=== PATIENT | female | born 1970 | race African-American/Black ===

== ENCOUNTER 2019-12-24 23:35 | Inpatient (IN) ==
[2019-12-25] MEDS ORDERED: guaiFENesin/DM ER 600-30 MG TABLET PO PRN (03:08)
[2019-12-25] MEDS ORDERED: diphenhydrAMINE CAP 25 MG CAPSULE PO PRN (03:08)
[2019-12-25] MEDS ORDERED: ACETAMINOPHEN 325 MG TABLET PO PRN (03:08)
[2019-12-25] MEDS ORDERED: BISACODYL 5 MG TABLET PO PRN (03:08)
[2019-12-25] MEDS ORDERED: NICOTINE 21 MG/24 HR PATCH TRANSDERM PRN (03:08)
[2019-12-25] MEDS ORDERED: hydrALAZINE 20 MG/1 ML VIAL IV PRN (03:42)
[2019-12-25] MEDS ORDERED: INFLUENZA VIRUS VACCINE 0.5 ML SYRINGE IM ONE (03:56)
[2019-12-25] MEDS: SODIUM CHLORIDE 0.9% 1,000 ML IV SCH ×2 (03:58→17:23)
[2019-12-25] MEDS: MORPHINE 4 MG/1 ML VIAL IV PRN ×5 (04:12→23:31)
[2019-12-25 05:23] LABS: Basophils % 0.5 % (0.0-0.8); Hematocrit 42.1 VOL% (35.7-47.0); Hemoglobin 13.8 GM/DL (12.0-16.0); Immature Granulocytes % 1.4 %; Immature Granulocytes Absolute 0.03 #; Lymphocytes # 0.6 10*3/uL (1.4-4.0); Lymphocytes % 25.9 % (21.3-54.2); Mean Corpuscular HGB Conc 32.8 GM/DL (32-36); Mean Corpuscular Volume 84.2 FL (87-102); Mean Platelet Volume 9.5 FL (9.6-12.0); Monocytes % 6.4 % (1.7-12.7); Neutrophils % 65.8 % (38.7-73.9); Platelet Count 198 T/CUMM (130-400); Red Cell Distribution Width 13.2 % (9.3-17.3); White Blood Count 2.2 T/CUMM (4-12)
[2019-12-25 05:52] LABS: Risk Ratio 6.45; VLDL CHOLESTEROL 23.4 MG/DL
[2019-12-25 05:52] LABS: Troponin I < 0.015 NG/ML (0.00-0.045)
[2019-12-25 05:54] LABS: Albumin 2.7 G/DL (3.4-5.0); Bilirubin,Total 0.5 MG/DL (0.2-1.0); Calcium 7.8 MG/DL (8.5-10.1); Osmolality,Calculated 267.2 MOS/KG (273-304); Thyroid Stimulating Hormone 2.52 uIU/ml (0.358-3.74); Total Protein 6.7 G/DL (6.4-8.3)
[2019-12-25] MEDS ORDERED: VANCOMYCIN INJ 1,000 MG in SODIUM CHLORIDE 0.9% 250 ML IV SCH (06:00)
[2019-12-25 06:31] LABS: Albumin 2.8 G/DL (3.4-5.0); Bilirubin,Direct 0.17 MG/DL (0.0-0.20); Bilirubin,Indirect 0.2 MG/DL (0.0-1.0); Bilirubin,Total 0.4 MG/DL (0.2-1.0); Total Protein 6.7 G/DL (6.4-8.3)
[2019-12-25 09:13] LABS: INR 1.2; PT Patient Result 12.7 SECS (9.6-12.2)
[2019-12-25 10:51] LABS: Appearance,CSF Clear; Lymphocytes,CSF 75 %; Neutrophils,CSF 6 %; Red Blood Cell,CSF 118 C/CUMM; White Blood Cell,CSF 29 C/CUMM
[2019-12-25 10:51] LABS: Hepatitis B Core IgM Quant 0.07 Index; Hepatitis B Surface Ag Quant 0.45 Index; Hepatitis B Surface Ag Result Negative (Negative); Hepatitis C Virus Ab Quant 0.08 Index; Hepatitis C Virus Ab Result Negative (Negative)
[2019-12-25 10:52] LABS: Monocytes,CSF 19 %
[2019-12-25 11:20] LABS: Glucose,CSF 46 MG/DL (40-70)
[2019-12-25] MEDS ORDERED: VANCOMYCIN INJ 2,500 MG in SODIUM CHLORIDE 0.9% 500 ML IV ONE (12:00)
[2019-12-25] MEDS: SIMETHICONE CHEW 125 MG TABLET PO PRN ×2 (12:40→18:19)
[2019-12-25] MEDS: PROMETHAZINE 25 MG/1 ML VIAL IM PRN (15:14)
[2019-12-25] MEDS: POTASSIUM CHLORIDE 20 MEQ TABLET PO PRN ×3 (16:41→23:33)
[2019-12-25 18:08] LABS: Barbiturates Screen,Urine Positive (Negative); Benzodiazepines Screen,Urine Negative (Negative); Cannabinoid Screen,Urine Negative (Negative); Opiate Screen,Urine Positive (Negative); Phencyclidine Screen,Urine Negative (Negative)
[2019-12-25 18:12] LABS: Apearance,Urine CLEAR (Clear); Bacteria,Urine Occasional /HPF (Few); Bilirubin,Urine Negative (Negative); Blood, Urine Negative (Negative); Glucose,Urine (UA) Negative (Negative); Ketones,Urine Negative (Negative); Nitrite,Urine Negative (Negative); Protein,Urine 100 MG/DL; RBC,Urine <1 /HPF (0-4); Urine Color Amber (Yellow); Urine Urobilinogen < 2.0 EU/DL (0.2-1.0); WBC,Urine 1 /HPF (0-6)
[2019-12-25] MEDS: ACYCLOVIR INJ 1,250 MG in SODIUM CHLORIDE 0.9% 250 ML IV SCH (18:19)
[2019-12-25] MEDS ORDERED: cefTRIAXone 1,000 MG in SYRINGE 1 EACH IV SCH (21:00)
[2019-12-26] MEDS ORDERED: SIMETHICONE CHEW 80 MG TABLET PO PRN (01:44)
[2019-12-26] MEDS ORDERED: PANTOPRAZOLE 40 MG VIAL IV ONE (01:45)
[2019-12-26] MEDS: PROMETHAZINE 25 MG/1 ML VIAL IM PRN (02:01)
[2019-12-26] MEDS: ACYCLOVIR INJ 1,250 MG in SODIUM CHLORIDE 0.9% 250 ML IV SCH ×3 (02:01→18:08)
[2019-12-26] MEDS: MORPHINE 4 MG/1 ML VIAL IV PRN ×4 (05:02→22:40)
[2019-12-26 05:35] LABS: Basophils % 0.4 % (0.0-0.8); Hematocrit 38.6 VOL% (35.7-47.0); Hemoglobin 12.4 GM/DL (12.0-16.0); Immature Granulocytes % 0.4 %; Immature Granulocytes Absolute 0.01 #; Lymphocytes # 0.8 10*3/uL (1.4-4.0); Lymphocytes % 32.4 % (21.3-54.2); Mean Corpuscular HGB Conc 32.1 GM/DL (32-36); Mean Corpuscular Volume 84.8 FL (87-102); Monocytes % 9.7 % (1.7-12.7); Neutrophils % 57.1 % (38.7-73.9); Platelet Count 212 T/CUMM (130-400); Red Blood Count 4.55 MC/CUMM (3.8-5.5); Red Cell Distribution Width 13.3 % (9.3-17.3); White Blood Count 2.6 T/CUMM (4-12)
[2019-12-26 05:51] LABS: Calcium 7.8 MG/DL (8.5-10.1); Osmolality,Calculated 265.2 MOS/KG (273-304)
[2019-12-26 05:59] LABS: Albumin 2.8 G/DL (3.4-5.0); Bilirubin,Direct 0.17 MG/DL (0.0-0.20); Bilirubin,Indirect 0.4 MG/DL (0.0-1.0); Bilirubin,Total 0.6 MG/DL (0.2-1.0); Total Protein 6.4 G/DL (6.4-8.3)
[2019-12-26] MEDS: SODIUM CHLORIDE 0.9% 1,000 ML IV SCH (07:39)
[2019-12-26] MEDS: SIMETHICONE CHEW 125 MG TABLET PO PRN (09:19)
[2019-12-26] MEDS: ONDANSETRON 4 MG/2 ML VIAL IV PRN (09:20)
[2019-12-26] MEDS ORDERED: cefTRIAXone 1,000 MG in SODIUM CHLORIDE 0.9% 100 ML IV SCH (10:00)
[2019-12-26] MEDS ORDERED: VANCOMYCIN INJ 2,500 MG in SODIUM CHLORIDE 0.9% 500 ML IV ONE (13:00)
[2019-12-27] MEDS: ACYCLOVIR INJ 1,250 MG in SODIUM CHLORIDE 0.9% 250 ML IV SCH ×3 (02:36→16:34)
[2019-12-27] MEDS: MORPHINE 4 MG/1 ML VIAL IV PRN ×3 (05:23→15:09)
[2019-12-27] MEDS: VANCOMYCIN INJ 1,750 MG in SODIUM CHLORIDE 0.9% 500 ML IV SCH ×2 (05:30→14:40)
[2019-12-27 05:53] LABS: Basophils % 0.6 % (0.0-0.8); Eosinophils % 1.1 % (0.00-10.9); Hematocrit 34.4 VOL% (35.7-47.0); Hemoglobin 11.4 GM/DL (12.0-16.0); Immature Granulocytes % 0.3 %; Immature Granulocytes Absolute 0.01 #; Lymphocytes # 1.2 10*3/uL (1.4-4.0); Lymphocytes % 33.1 % (21.3-54.2); Mean Corpuscular HGB Conc 33.1 GM/DL (32-36); Mean Corpuscular Volume 84.3 FL (87-102); Mean Platelet Volume 9.8 FL (9.6-12.0); Monocytes % 10.6 % (1.7-12.7); Neutrophils % 54.3 % (38.7-73.9); Platelet Count 206 T/CUMM (130-400); Red Blood Count 4.08 MC/CUMM (3.8-5.5); Red Cell Distribution Width 13.4 % (9.3-17.3); White Blood Count 3.6 T/CUMM (4-12)
[2019-12-27 06:07] LABS: Calcium 7.9 MG/DL (8.5-10.1); Osmolality,Calculated 268.8 MOS/KG (273-304)
[2019-12-27 08:59] LABS: Alanine Aminotransferase 1017 U/L (13-56); Albumin 2.4 G/DL (3.4-5.0); Alkaline Phosphatase 65 U/L (45-117); Aspartate Amino Transferase 357 U/L (0-37); Bilirubin,Indirect 0.3 MG/DL (0.0-1.0); Bilirubin,Total < 0.39 MG/DL (0.2-1.0)
[2019-12-27] MEDS: SODIUM CHLORIDE 0.9% 1,000 ML IV SCH ×2 (09:52→10:16)
[2019-12-27] MEDS: ONDANSETRON 4 MG/2 ML VIAL IV PRN (15:09)
[2019-12-27 16:37] VITALS: BP 122/56
== END 2019-12-27 16:50 | disposition home or self-care (01) | DRG 103 ==
LOC: EDBD → EDUNIT# → N.ED 23:35 → N.EDINP 23:35 → N.2E 12-25 03:30
PROVIDERS: ADMIT Internal Medicine Geriatric Medicine; ATTEND Internal Medicine Geriatric Medicine